=== PATIENT | female | born 2000 | race African-American/Black ===

== ENCOUNTER → 2020-08-20 | Outpatient (REF) | payer OTHER | LOC: M WUC 20:48 | PROVIDERS: ATTEND Physician Assistant | DX: N39.0 Urinary tract infection, site not specified (principal) ==

== ENCOUNTER → 2021-03-21 | Outpatient (CLI) | payer OTHER ==
--- NOTE | 2021-03-21 14:28 | REP ---
INDICATION: PREG 19+ WKS ANATOMY COMPARISON: None. TECHNIQUE: Transabdominal obstetrical ultrasound with color Doppler evaluation. FINDINGS: Examination demonstrates a single live intrauterine in variable presentation. motion is identified by technologist. Placenta is noted posterior and grade 0 without evidence for placenta previa or abruption. Amniotic fluid volume is normal. Cervix measures 6.0 cm in length and appears closed.. Selected gestational age: 20 weeks 2 days with PABLITO 08/06/2021. Gestational age by current measurements 22 weeks 0 days with PABLITO 07/25/2021. FHR equals 150 beats per minute. BPD: 5.3 cm at 22 weeks 0 days HC: 19.6 cm at 21 weeks 5 days AC: 17.2 cm at 22 weeks 1 day FL: 3.8 cm at 22 weeks 0 days HL: 3.5 cm at 22 weeks 1 day HC/AC: 1.14 Estimated weight 473 grams (greater than 97thpercentile based on selected age at 20 weeks 2 days). Anatomical assessment demonstrates normal structures including cranium, choroid plexus, cavum, cerebellum/posterior fossa, facial profile, orbits, lungs, four-chamber heart/ventricular outflow tracts, diaphragm, stomach, cord insertion/three-vessel cord, kidneys/bladder, spine, and extremities. Limited evaluation of the nose/lips. IMPRESSION: Single live intrauterine in variable presentation demonstrating greater than expected estimated weight based on selected age. Limited evaluation of the nose/lips. Remainder of the anatomical assessment is complete and normal. <Electronically signed by Gomez Brody > 03/21/21 [id number]
== END ==
LOC: M RAD 13:12
PROVIDERS: ATTEND Registered Nurse Maternal Newborn
DX: Z36.89 Encounter for other specified antenatal screening (principal); Z3A.22 22 weeks gestation of pregnancy

== ENCOUNTER → 2021-07-23 | Outpatient (CLI) | payer OTHER ==
[~2021-07-23] MED LIST: AMOX875T PO
== END ==
LOC: M RAD 12:17
PROVIDERS: ATTEND Obstetrics & Gynecology
DX: Z34.93 Encounter for supervision of normal pregnancy, unspecified, third trimester (principal); Z3A.39 39 weeks gestation of pregnancy

== ENCOUNTER 2021-07-31 11:47 | Inpatient (IN) | payer OTHER ==
[2021-07-31] VITALS (17 sets, daily range): BP systolic 114–154; BP diastolic 70–97
[~2021-07-31] VITALS: Ht 162.6 cm; Wt 90.5 kg
[2021-07-31] MEDS ORDERED: PRENTAB9 PO (12:04)
[2021-07-31] MEDS ORDERED: HOME MED LIST COMPLETE! XX SCH (12:25)
[2021-07-31] MEDS ORDERED: OXYTOCIN DRIP 30 UNITS in IV 1 EA IV PRN ×6 (12:55)
[2021-07-31] MEDS ORDERED: OXYTOCIN INJ 10 UNITS/ML VIAL (J2590) IV PRN (12:55)
[2021-07-31] MEDS ORDERED: LIDOCAINE 1% MDV 20ML VIAL INFIL PRN (12:55)
[2021-07-31] MEDS ORDERED: OXYTOCIN DRIP 30 UNITS in IV 1 EA IV SCH (12:55)
[2021-07-31] MEDS ORDERED: METHYLERGONOVINE MALEATE 0.2 MG/ML VIAL (J2210) IM PRN (12:55)
[2021-07-31] MEDS ORDERED: TRANEXAMIC ACID INJection 1,000 MG in NS 100 ML IV PRN (12:55)
[2021-07-31] MEDS ORDERED: CARBOPROST TROMETHAMINE 250 MCG/ML AMP IM PRN (12:55)
[2021-07-31 13:33] LABS: HEMATOCRIT 38.4 % (36.0-47.0); HEMOGLOBIN 13.2 g/dl (12.0-15.5); MEAN CORPUSCULAR HEMOGLOBIN 30.9 pg (27.0-33.0); MEAN CORPUSCULAR HGB CONC 34.4 g/dl (32.0-36.5); MEAN CORPUSCULAR VOLUME 89.9 fl (80.0-96.0); PLATELET COUNT, AUTOMATED 209 10^3/uL (150-450); RED BLOOD COUNT 4.27 10^6/uL (4.00-5.40); WHITE BLOOD COUNT 8.6 10^3/uL (4.0-10.0)
[2021-07-31] MEDS: LR 1,000 ML IV SCH ×2 (14:23→22:40)
[2021-07-31] MEDS ORDERED: REFLB XX ONE (21:54)
[2021-07-31] MEDS: FENTANYL/ROPIVACAINE/NACL BAG 100 ML EPIDURAL SCH (22:14)
[2021-07-31] MEDS ORDERED: EPIDURAL COMMENT XX SCH (22:18)
[2021-07-31] MEDS ORDERED: NALOXONE INJ 0.4MG/1ML VIAL (J2310 PER 1MG) IV PRN (22:18)
[2021-07-31] MEDS ORDERED: diphenhydrAMINE 50MG/ML VIAL (J1200) IV PRN (22:18)
[2021-07-31] MEDS ORDERED: REFRIGERATOR IV KEYS XX PRN (22:18)
[2021-07-31] MEDS ORDERED: ePHEDrine SULFATE 25 MG/5 ML(5MG/ML) SYRINGE IV PRN (22:18)
[2021-07-31] MEDS ORDERED: EPIDURAL/PCA KEYS XX PRN (22:18)
[2021-07-31] MEDS ORDERED: ONDANSETRON 4MG/2ML VIAL IV PRN (22:18)
[2021-07-31] MEDS ORDERED: LACTATED RINGER'S 1000 ML IV PRN (22:18)
[2021-08-01] VITALS (58 sets, daily range): BP systolic 106–170; BP diastolic 58–105
[2021-08-01] MEDS: LR 1,000 ML IV SCH ×3 (03:50→16:04)
[2021-08-01] MEDS ORDERED: REFLB XX ONE ×3 (04:51→18:07)
[2021-08-01] MEDS: FENTANYL/ROPIVACAINE/NACL BAG 100 ML EPIDURAL SCH ×3 (04:59→18:11)
[2021-08-01 20:48] LABS: CORD GAS ABE A -9.4; CORD GAS ABE V -8.4; CORD GAS HCO3 V 17.4 MEQ/L; CORD GAS O2 SAT A 21.5 %; CORD GAS O2 SAT V 78.1 %; CORD GAS PCO2 A 58.8 mmHg; CORD GAS PH A 7.15 UNITS; CORD GAS PH V 7.29 UNITS; CORD GAS PO2 A 14.8 mmHg; CORD GAS PO2 V 37.1 mmHg; CORD GAS SBC A 15.5 MEQ/L; CORD GAS SBC V 17.4 MEQ/L; CORD GAS TCO2 A 21.8 MEQ/L; CORD GAS TCO2 V 18.5 MEQ/L
[2021-08-01] MEDS ORDERED: OXYTOCIN DRIP 30 UNITS in IV 1 EA IV SCH (21:05)
[2021-08-01] MEDS ORDERED: LR 1,000 ML IV SCH (21:05)
[2021-08-01] MEDS ORDERED: ANUSOL HC CREAM 30GM TOP PRN (21:05)
[2021-08-01] MEDS ORDERED: MEASLES,MUMPS,RUBELLA VACCINE INJ (MMR-II) (90707) SC SCH (21:05)
[2021-08-01] MEDS ORDERED: ACETAMINOPHEN 500 MG TAB PO PRN (21:05)
[2021-08-01] MEDS ORDERED: ACETAMINOPHEN TAB 650MG DOSE (2X325MG) PO PRN (21:05)
[2021-08-01] MEDS ORDERED: MOM 30ML SUSPENSION UDC PO PRN (21:05)
[2021-08-01] MEDS ORDERED: DOCUSATE SODIUM 100MG CAPSULE PO PRN (21:05)
[2021-08-01] MEDS ORDERED: METHYLERGONOVINE MALEATE 0.2 MG TAB PO PRN (21:05)
[2021-08-01] MEDS ORDERED: OXYTOCIN INJ 10 UNITS/ML VIAL (J2590) IV ONE (21:05)
[2021-08-01] MEDS ORDERED: OXYTOCIN DRIP 30 UNITS in IV 1 EA IV ONE (21:05)
[2021-08-01] MEDS ORDERED: RHOGAM 300 MCG (1500 IU) INJ (J2790) IM SCH (21:05)
[2021-08-01] MEDS: IBUPROFEN 600MG TAB PO PRN (21:32)
[2021-08-02 06:00] VITALS: BP 139/65
[2021-08-02 07:41] LABS: HEMATOCRIT 33.3 % (36.0-47.0); HEMOGLOBIN 11.5 g/dl (12.0-15.5); MEAN CORPUSCULAR HEMOGLOBIN 30.8 pg (27.0-33.0); MEAN CORPUSCULAR HGB CONC 34.5 g/dl (32.0-36.5); MEAN CORPUSCULAR VOLUME 89.3 fl (80.0-96.0); PLATELET COUNT, AUTOMATED 201 10^3/uL (150-450); RED BLOOD COUNT 3.73 10^6/uL (4.00-5.40); WHITE BLOOD COUNT 14.2 10^3/uL (4.0-10.0)
[2021-08-02] MEDS: IBUPROFEN 600MG TAB PO PRN (07:55)
[2021-08-02] MEDS: PRENATAL VITAMINS CHEWABLE TABLET PO SCH (07:55)
[2021-08-02] MEDS: DIBUCAINE 1% OINTMENT 30GM TOP PRN (07:55)
[2021-08-02 18:00] VITALS: BP 128/78
[2021-08-03 05:52] VITALS: BP 129/73
[2021-08-03] MEDS ORDERED: ACET-683 PO (08:04)
[2021-08-03] MEDS ORDERED: IBUP-1022 PO (08:04)
[2021-08-03] MEDS: PRENATAL VITAMINS CHEWABLE TABLET PO SCH (08:45)
[2021-08-03] MEDS: DIBUCAINE 1% OINTMENT 30GM TOP PRN (08:45)
== END 2021-08-03 12:17 | disposition home or self-care (01) | DRG 807 ==
LOC: M LDI 11:47 → M OBS 08-01 22:15
PROVIDERS: ADMIT Obstetrics & Gynecology; ATTEND Obstetrics & Gynecology
PROC: 3E033VJ Introduction of Other Hormone into Peripheral Vein, Percutaneous Approach (ICD-10-PCS; 2021-07-31)
PROC: 10E0XZZ Delivery of Products of Conception, External Approach (ICD-10-PCS; principal; 2021-08-01)
PROC: 0W8NXZZ Division of Female Perineum, External Approach (ICD-10-PCS; 2021-08-01)
DX: O36.63X0 Maternal care for excessive fetal growth, third trimester, not applicable or unspecified (principal); Z37.0 Single live birth; Z3A.39 39 weeks gestation of pregnancy; O26.03 Excessive weight gain in pregnancy, third trimester; O76 Abnormality in fetal heart rate and rhythm complicating labor and delivery; O77.0 Labor and delivery complicated by meconium in amniotic fluid; O69.81X0 Labor and delivery complicated by cord around neck, without compression, not applicable or unspecified; O62.2 Other uterine inertia

== ENCOUNTER → 2021-12-31 | Outpatient (REF) | payer OTHER ==
[~2021-12-31] MED LIST changes: +ACET-683 PO; +IBUP-1022 PO; +PRENTAB9 PO
== END ==
LOC: M LAB REF 15:42
PROVIDERS: ATTEND Physician Assistant
DX: J02.9 Acute pharyngitis, unspecified (principal)